=== PATIENT | male | born 1945 | race Caucasian/White ===

== ENCOUNTER 2020-04-24 05:34 | Inpatient (IN) | payer MEDICARE, OTHER ==
[2020-04-24] MEDS ORDERED: methylPREDNISolone Sod Succ/PF 125 MG/2 ML VIAL ONE (06:45)
[2020-04-24] MEDS ORDERED: Albuterol 200 PUFF (6.7GM INHALER) ONE (06:54)
[2020-04-24] MEDS ORDERED: HumaLOG 300 UNITS/3 ML VIAL SC PRN (07:07)
[2020-04-24] MEDS ORDERED: Dextrose 5% in Water 1,000 ML IV PRN (07:07)
[2020-04-24] MEDS ORDERED: Dextrose 50% Abboject 50 ML SYRINGE SLOW IVP PRN (07:07)
[2020-04-24 07:14] LABS: SARS-CoV-2 NAA Rapid Test Not Detected (NotDetected)
--- NOTE | 2020-04-24 07:36 | HP ---
REASON FOR ADMISSION: Shortness of breath. HISTORY OF PRESENT ILLNESS: This is a 75-year-old male patient, who is presenting with shortness of breath. History is going back to 24 hours before his presentation. He has been having worsening shortness of breath with cough productive of whitish sputum. He denies fevers. He denies chills. He does report low appetite ane a bit of diarrhea. He does report being tired at an outside ER. He did receive albuterol via inhaler and felt better. Upon his arrival to our emergency room, he was doing well until when I saw him, he appeared to be laboring to breathe, but able to finish a full sentence. The patient denies sick contacts. Denies recent travel, I did review his records, his last admission to our hospital was in 2017 for acute coronary syndrome. At that time, he was seen by Cardiology and Cardiovascular Surgery and did undergo valve replacement and bypass surgery. PAST MEDICAL HISTORY: 1. Severe aortic stenosis status post aortic valve replacement. 2. Coronary artery disease, status post CABG. 3. Ischemic cardiomyopathy. 4. Atrial fibrillation. 5. Type 2 diabetes. 6. High blood pressure. 7. Suspected uprw-ko-busdhmhz COPD. 8. 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 9. History of lymphoma post radiation and chemotherapy. He says that he has one rib removed on the right side. ALLERGIES: TO SULFA. SOCIAL HISTORY: He used to be a smoker. It seems that he quit approximately three years ago. Does not drink alcohol. FAMILY HISTORY: Positive for COPD and heart disease in his brother. REVIEW OF SYSTEMS: All systems reviewed except the above mentioned, found to be negative. PHYSICAL EXAMINATION: GENERAL: Awake, alert, and oriented. Does appear short of breath. VITAL SIGNS: His blood pressure is 100/74, heart rate of 84, respiratory rate 23, and saturating 97% room air. HEENT: Head is nontraumatic and normocephalic. Pupils are equal and reactive. Extraocular movements are intact. Nonicteric sclerae. Well injected conjunctivae. Oral mucosa normal. Nasal mucosa normal. NECK: Supple. No adenopathy. No murmur. Thyroid is not palpable. Trachea is midline. No supraclavicular lymphadenopathy. HEART: S1 and S2. Regular. No murmur. No gallops. No friction rubs. No displacement of PMI. LUNGS: Decreased air entry bilaterally. Whenever he coughs, I do hear bilateral expiratory rhonchi. ABDOMEN: Bowel sounds are positive. Nontender abdomen. No hepatosplenomegaly. No lower extremity edema. No cyanosis. NEURO: Cranial nerves 2 through 12 within normal limits. Normal motor function. Normal sensory function. Normal reflexes LABORATORY DATA: Blood work shows WBC of 12.1, hemoglobin of 10, which is around his baseline, platelets of 234, and neutrophil count 82%. Sodium of 139, potassium 3.5, bicarb of 17, BUN 15, creatinine 1, and lactic acid 3.3 and repeat is 1.9. BNP is 100.1. CT of the chest and thorax showing possibly right middle lobe pneumonia. Chest x-ray shows no active disease. ASSESSMENT AND PLAN: This is a 75-year-old male patient, who is presenting with shortness of breath, could be secondary to pneumonia/chronic obstructive pulmonary disease exacerbation, was still awaiting for the official report of his CT of the chest. Pulmonary: The patient will be on neb treatments. We are awaiting for his COVID-19 test result and we will start neb treatments afterward. We will have him on IV Solu-Medrol. We are debating whether he needs to go to med/surgery versus a higher level of care depending on his response to the inhalers that we are now giving to him. Diabetes: The patient will be on insulin sliding scale. Awaiting his med rec to be done. For deep venous thrombosis prophylaxis, he will be on Lovenox. Cardiac: The patient is on Plavix. This will be continued awaiting for his med rec to be done. I did discuss with him his code status. He wishes to be a full code. Job ID: [id number]
[2020-04-24] MEDS ORDERED: Azithromycin 500 MG in Sodium Chloride 0.9% 250 ML 250 ML IVPB SCH (08:00)
--- NOTE | 2020-04-24 08:27 | CT ---
CTA OF THE CHEST WITH CONTRAST: HISTORY: Shortness of breath and malaise for a day. Fever. TECHNIQUE: Multiple contiguous axial images were obtained in a CTA of the chest with contrast performed accordi ng to protocol. Three-D oblique MIP reformats and direct coronal reformats were performed. FINDINGS: The pulmonary arteries are well opacified without filling defects to suggest pulmonary emboli. The h eart is normal in size. The patient is status post aortic valve repair. No hilar or mediastinal lym phadenopathy are seen. Bony changes, shrapnel, and soft tissue attenuation is seen in the right lower lobe. This may repres ent scarring from a previous injury within the right lower lobe of the lung. There is also slight no dularity in the posterior aspect of the right middle lobe and there are increased interstitial lung m arkings and a slightly reticulonodular pattern in the right upper lobe. These findings may be sequel ae from prior injury or surgery, but infection cannot be entirely excluded. There is a nodule in the left lower lobe measuring 4 mm in size. No pneumothorax or pleural effusion are seen. There are gallstones in the gallbladder. The other visualized subdiaphragmatic structures are unrema rkable. There are absent right posterior ribs. Degenerative changes are seen in the spine. IMPRESSION: 1. No evidence of pulmonary thromboembolism. 2. Scattered areas of soft tissue attenuation in the right lung, greatest in the right lower lobe. This may be sequelae from prior surgery or trauma. An infection cannot be excluded and is also a pos sibility. 3. Cholelithiasis. POS: EAA
[2020-04-24 09:07] VITALS: BMI 26.4
--- NOTE | 2020-04-24 09:42 | PDOC.HOSPP ---
- Subjective Encounter Date: 04/24/20 Encounter Time: 09:38 Subjective: chronic cough. no fever, chills - Objective Vital Signs & Weight: Vital Signs (12 hours) Temp Pulse Resp BP Pulse Ox 04/24/20 08:45 99.0 F 68 18 136/71 96 Weight Weight 189 lb 4 oz Radiology Reviewed by me: Yes (cxr- no focal findings, post CABG) EKG Reviewed by me: Yes (RSR with PACs, st-t abn consistent with iscemia) - Exam General Appearance: awake alert Neck: no JVD Heart: RRR, II/IV Respiratory - other findings: good BS, no focal findings Gastrointestinal: soft, non-tender, normal bowel sounds Extremities: no edema Hosp A/P (1) Leukocytosis Code(s): D72.829 - ELEVATED WHITE BLOOD CELL COUNT, UNSPECIFIED Status: Acute (2) CAD (coronary artery disease) Code(s): I25.10 - ATHSCL HEART DISEASE OF [place] CORONARY ARTERY W/O ANG PCTRS Status: Acute Qualifiers: Coronary Disease-Associated Artery/Lesion type: [place] artery [place] vs. transplanted heart: [place] heart (3) Cardiomyopathy Code(s): I42.9 - CARDIOMYOPATHY, UNSPECIFIED Status: Acute Qualifiers: Cardiomyopathy type: unspecified Qualified Code(s): I42.9 - Cardiomyopathy , unspecified (4) S/P AVR Code(s): Z95.2 - PRESENCE OF PROSTHETIC HEART VALVE Status: Acute (5) S/P CABG (coronary artery bypass graft) Code(s): Z95.1 - PRESENCE OF AORTOCORONARY BYPASS GRAFT Status: Acute (6) HTN (hypertension) Code(s): I10 - ESSENTIAL (PRIMARY) HYPERTENSION Status: Chronic Qualifiers: Hypertension type: essential hypertension Qualified Code(s): I10 - Essential (primary) hypertension - Plan admitted with DX sepsis due to leukocytosis and elevated lactic acid lactic acid now normal, will rpt CBC cultures drawn in outlying ED cont antibx, await culture reports
[2020-04-24] MEDS: cefTRIAXone\\ROCEPHIN 1 GM in Sodium Chloride 0.9% 100 ML IVPB SCH (10:16)
[2020-04-24] MEDS: Enoxaparin Sodium 40 MG/0.4 ML SYRINGE SC SCH (10:16)
[2020-04-24] MEDS: Azithromycin 500 MG in Sodium Chloride 0.9% 250 ML 250 ML IVPB SCH (10:41)
[2020-04-24 10:49] LABS: #Lymphocytes 0.6 thou/uL (1.20-3.40); #Monocytes 0.3 thou/uL (0.11-0.59); #Neutrophils 10.4 thou/uL (1.40-6.50); %Eosinophils 0.4 % (0.0-10.0); %Lymphocytes 5.1 % (21.0-51.0); %Monocytes 2.6 % (0.0-10.0); %Neutrophils 91.9 % (42.0-75.0); Hemoglobin 10.2 g/dL (14.0-18.0); Mean Corpuscular HGB CONC 32.3 g/dL (32.0-36.0); Mean Corpuscular Hemoglobin 26.1 pg (27.0-31.0); Mean Platelet Volume 7.9 fL (7.4-10.4); Platelet Count 177 thou/uL (130-400); Red Blood Cell (RBC) Count 3.88 mill/uL (4.70-6.10); White Blood Cell (WBC) Count 11.3 thou/uL (4.8-10.8)
[2020-04-24] MEDS: Furosemide 20 MG TAB PO SCH (13:55)
[2020-04-24] MEDS: methylPREDNISolone Sod Succ 40 MG VIAL IVP SCH ×2 (14:49→23:01)
[2020-04-24] MEDS: Carvedilol 3.125 MG TAB PO SCH (16:37)
[2020-04-24] MEDS: metFORMIN 500 MG TAB PO SCH (16:37)
[2020-04-24] MEDS: Atorvastatin Calcium 20 MG TAB PO SCH (21:34)
[2020-04-24] MEDS: Gabapentin 100 MG CAP PO SCH (21:34)
[2020-04-24] MEDS: Lisinopril 5 MG TAB PO SCH (22:20)
[2020-04-25 05:34] LABS: #Lymphocytes 0.7 thou/uL (1.20-3.40); #Monocytes 0.3 thou/uL (0.11-0.59); #Neutrophils 7.8 thou/uL (1.40-6.50); %Basophils 0.1 % (0.0-1.0); %Eosinophils 0.1 % (0.0-10.0); %Lymphocytes 8.2 % (21.0-51.0); %Monocytes 3.3 % (0.0-10.0); %Neutrophils 88.4 % (42.0-75.0); Hemoglobin 8.7 g/dL (14.0-18.0); Mean Corpuscular HGB CONC 31.3 g/dL (32.0-36.0); Mean Corpuscular Hemoglobin 25.4 pg (27.0-31.0); Mean Corpuscular Volume 81.1 fL (78.0-98.0); Mean Platelet Volume 7.9 fL (7.4-10.4); Platelet Count 162 thou/uL (130-400); RBC Distribution Width 13.9 % (11.5-14.5); Red Blood Cell (RBC) Count 3.42 mill/uL (4.70-6.10); White Blood Cell (WBC) Count 8.8 thou/uL (4.8-10.8)
[2020-04-25 05:55] LABS: Anion Gap 14 mmol/L (10-20); BUN (Urea Nitrogen) 12 mg/dL (8.4-25.7); Calc. Creatinine Clearance 96 mL/min (70-130); Calcium 8.7 mg/dL (7.8-10.44); Carbon Dioxide 23 mmol/L (23-31); Chloride 108 mmol/L (98-107); Estimated GFR-MDRD Greater than 90; Glucose 161 mg/dL (83-110); Potassium 3.7 mmol/L (3.5-5.1); Sodium 141 mmol/L (136-145)
[2020-04-25] MEDS: cefTRIAXone\\ROCEPHIN 1 GM in Sodium Chloride 0.9% 100 ML IVPB SCH (08:28)
[2020-04-25] MEDS: metFORMIN 500 MG TAB PO SCH ×2 (08:29→16:24)
[2020-04-25] MEDS: Aspirin 325 mg Enteric Coated Tablet PO SCH (08:29)
[2020-04-25] MEDS: Gabapentin 100 MG CAP PO SCH ×2 (08:29→21:40)
[2020-04-25] MEDS: Furosemide 20 MG TAB PO SCH ×2 (08:29→14:50)
[2020-04-25] MEDS: Lisinopril 5 MG TAB PO SCH ×2 (08:30→21:40)
[2020-04-25] MEDS: methylPREDNISolone Sod Succ 40 MG VIAL IVP SCH ×3 (08:32→23:08)
[2020-04-25] MEDS: Enoxaparin Sodium 40 MG/0.4 ML SYRINGE SC SCH (08:33)
[2020-04-25] MEDS: Carvedilol 3.125 MG TAB PO SCH ×3 (08:33→16:27)
[2020-04-25] MEDS: Amiodarone 200 MG TAB PO SCH (08:37)
[2020-04-25] MEDS ORDERED: Pravastatin Sodium 40 MG TAB PO SCH (09:00)
[2020-04-25] MEDS: Azithromycin 500 MG in Sodium Chloride 0.9% 250 ML 250 ML IVPB SCH (11:45)
--- NOTE | 2020-04-25 14:30 | PDOC.HOSPP ---
- Subjective Encounter Date: 04/25/20 Encounter Time: 14:25 Subjective: f/u for suspected sepsis due to PNA/COPD tx with Zithromax/Rocephin/Solumedrol. Remains on RA currently. - Objective Vital Signs & Weight: Vital Signs (12 hours) Temp Pulse Resp BP Pulse Ox 04/25/20 13:33 65 16 96 04/25/20 08:20 96 04/25/20 07:59 98.0 F 569 H 18 155/62 H 96 04/25/20 07:38 49 L 16 96 04/25/20 04:12 97.8 F 54 L 18 181/71 H 96 Weight Weight 189 lb 4 oz I&O: 04/24/20 04/25/20 04/26/20 06:59 06:59 06:59 Intake Total 480 Balance 480 Result Diagrams: 04/25/20 05:20 04/25/20 05:20 Additional Labs: Accuchecks 04/25/20 04/25/20 04/24/20 11:26 06:16 20:26 POC Glucose 135 H 148 H 184 H 04/24/20 15:25 POC Glucose 188 H Microbiology 04/23/20 23:10 Urine voided Urine Culture - Preliminary NO GROWTH AT 24 HOURS 04/23/20 02:45 Venous blood - Left Arm Blood Culture - Preliminary Specimen has been received and culture in progress. No Growth to date. 04/23/20 00:45 Venous blood - Left Arm Blood Culture - Preliminary Specimen has been received and culture in progress. No Growth to date. Laboratory Tests 04/23/20 04/24/20 04/24/20 20:20 02:45 06:00 WBC Hgb Lactic Acid 3.3 H 1.9 2.1 SARS-CoV-2 Rap RNA(RT-PCR) 04/24/20 04/24/20 04/24/20 06:04 09:10 10:39 WBC 11.3 H Hgb 10.2 L Lactic Acid 2.0 SARS-CoV-2 Rap RNA(RT-PCR) Not Detected Hospitalist ROS - Medication Medications: Active Medications Generic Name Dose Route Start Last Admin Trade Name Freq PRN Reason Stop Dose Admin Albuterol/Ipratropium 3 ml 04/24/20 13:00 04/25/20 13:33 Duoneb NEB 3 ml [id number] INGRID Administration Amiodarone HCl 400 mg 04/25/20 09:00 04/25/20 08:37 Cordarone PO Not Given DAILY [facility] Aspirin 325 mg 04/25/20 09:00 04/25/20 08:29 Ecotrin PO 325 mg DAILY INGRID Administration Atorvastatin Calcium 20 mg 04/24/20 21:00 04/24/20 21:34 Lipitor PO 20 mg HS INGRID Administration Carvedilol 3.125 mg 04/24/20 17:00 04/25/20 08:33 Coreg PO Not Given BID-WM INGRID Enoxaparin Sodium 40 mg 04/24/20 09:00 04/25/20 08:33 Lovenox SC 40 mg 0900 INGRID Administration Furosemide 40 mg 04/24/20 14:00 04/25/20 08:29 Lasix PO 40 mg 0900,1400 INGRID Administration Gabapentin 100 mg 04/24/20 21:00 04/25/20 08:29 Neurontin PO 100 mg BID INGRID Administration Ceftriaxone Sodium 1 gm/ 100 mls @ 200 mls/hr 04/24/20 09:00 04/25/20 08:28 Sodium Chloride IVPB 100 mls 0900 INGRID Administration Azithromycin 500 mg/ Sodium 250 mls @ 250 mls/hr 04/24/20 11:00 04/25/20 11: 45 Chloride IVPB 250 mls 1100 INGRID Administration Lisinopril 5 mg 04/24/20 21:00 04/25/20 08:30 Zestril PO 5 mg BID INGRID Administration Metformin HCl 1,000 mg 04/24/20 17:00 04/25/20 08:29 Glucophage PO 1,000 mg BID-WM INGRID Administration Methylprednisolone Sodium Succinate 40 mg 04/24/20 15:00 04/25/20 08:32 Solu-Medrol IVP 40 mg 0700,1500,2300 INGRID Administration Pantoprazole Sodium 40 mg 04/25/20 09:00 04/25/20 08:32 Protonix PO 40 mg DAILY INGRID Administration Sertraline HCl 50 mg 04/25/20 09:00 04/25/20 08:28 Zoloft PO 50 mg DAILY INGRID Administration Sodium Chloride 10 ml 04/24/20 09:00 04/25/20 08:33 Flush - Normal Saline IVF 10 ml Q12HR INGRID Administration - Exam General Appearance: NAD, awake alert Eye: PERRL, anicteric sclera ENT: normocephalic atraumatic, no oropharyngeal lesions Neck: supple, symmetric, no JVD, no thyromegaly Heart: RRR, no gallops, no rubs, normal peripheral pulses, murmur present, II/IV Heart - other findings: S1, S2 Respiratory: CTAB, no wheezes, no rales, no ronchi, normal chest expansion, no tachypnea Gastrointestinal: soft, non-tender, non-distended, normal bowel sounds, no palpable masses Extremities: no cyanosis, no clubbing, no edema Skin: normal turgor, no lesions Neurological: cranial nerve grossly intact Musculoskeletal: normal tone, generalized weakness Psychiatric: normal affect, A&O x 3 Hosp A/P (1) Sepsis Code(s): A41.9 - SEPSIS, UNSPECIFIED ORGANISM Status: Acute Qualifiers: Sepsis acute organ dysfunction status: unspecified Plan: No dominant organism identified, d/c Zithromax, continue Rocephin another 24h (2) Leukocytosis Code(s): D72.829 - ELEVATED WHITE BLOOD CELL COUNT, UNSPECIFIED Status: Acute Plan: Resolved, serial monitoring (3) Aortic stenosis Code(s): I35.0 - NONRHEUMATIC AORTIC (VALVE) STENOSIS Status: Chronic Plan: s/p AVR, continue supportive mgmt (4) CAD (coronary artery disease) Code(s): I25.10 - ATHSCL HEART DISEASE OF [place] CORONARY ARTERY W/O ANG PCTRS Status: Chronic Qualifiers: Coronary Disease-Associated Artery/Lesion type: [place] artery [place] vs. transplanted heart: [place] heart Plan: Chronic, stable, continue med mgmt (5) DM2 (diabetes mellitus, type 2) Status: Chronic Qualifiers: Diabetes mellitus complication status: without complication Plan: ISS/Metformin/ADA - Plan continue antibiotics, social media specialist, out of bed/ambulate, DVT proph w/SCDs Stable currently Continue Rocephin D/C Zithromax OOB/ambulate Loperamide PRN Floranex 250mg po daily Likely home in am
[2020-04-25] MEDS ORDERED: Loperamide HCl 2 MG CAP PO PRN (14:50)
[2020-04-25] MEDS ORDERED: Loperamide HCl 2 MG CAP PO SCH (15:00)
[2020-04-25] MEDS ORDERED: Saccharomyces boulardii 250 MG CAP PO SCH (15:00)
[2020-04-25] MEDS: Atorvastatin Calcium 20 MG TAB PO SCH (21:40)
[2020-04-26 07:19] VITALS: BP 173/61; TEMP 98.7
[2020-04-26] MEDS: cefTRIAXone\\ROCEPHIN 1 GM in Sodium Chloride 0.9% 100 ML IVPB SCH (08:14)
[2020-04-26] MEDS: metFORMIN 500 MG TAB PO SCH (08:16)
[2020-04-26] MEDS: Lisinopril 5 MG TAB PO SCH (08:16)
[2020-04-26] MEDS: Carvedilol 3.125 MG TAB PO SCH (08:17)
[2020-04-26] MEDS: Furosemide 20 MG TAB PO SCH (08:17)
[2020-04-26] MEDS: Gabapentin 100 MG CAP PO SCH (08:17)
[2020-04-26] MEDS: Amiodarone 200 MG TAB PO SCH (08:18)
[2020-04-26] MEDS: Aspirin 325 mg Enteric Coated Tablet PO SCH (08:19)
[2020-04-26] MEDS: Enoxaparin Sodium 40 MG/0.4 ML SYRINGE SC SCH (08:21)
[2020-04-26] MEDS ORDERED: Saccharomyces boulardii 250 MG CAP PO SCH (09:00)
[2020-04-26] MEDS: methylPREDNISolone Sod Succ 40 MG VIAL IVP SCH (09:57)
--- NOTE | 2020-04-26 10:30 | DIS ---
DATE OF ADMISSION: 04/24/2020 DATE OF DISCHARGE: 04/26/2020 DISCHARGE DIAGNOSES: 1. Sepsis secondarily to suspected pneumonia, improved. 2. Bacterial pneumonia, suspected of the right middle lobe. 3. Leukocytosis, resolved. 4. Aortic stenosis, stable. 5. Coronary artery disease, chronic and stable. 6. Diabetes mellitus, type 2. CONSULTATIONS: None. PERTINENT LABORATORY AND X-RAY FINDINGS: Lactic acid level ranged between 1.9 to 3.3. CBC showed a white blood cell count ranging between 8.8 to 11.3. SARS COVID 2 RNA PCR not detected 04/24/2020. CT angiogram of the chest dated 04/24/2020, showed no evidence for pulmonary embolus. Soft tissue attenuation in the right lung and right lower lobe. Portable chest x-ray dated 04/23/2020 showed no acute process. HOSPITAL COURSE: The patient was admitted to the medical floor after initially presenting with shortness of breath with fever and myalgias. The patient underwent evaluation including chest imaging with plain radiographs and CT modality showing early infiltrate in the right middle and lower lobe. The patient was also meeting sepsis criteria and placed on broad-spectrum antibiotic coverage. The patient also was ruled out for COVID-19 with PCR as stated previously. The patient continued to receive Rocephin and azithromycin in addition to bronchodilator therapy with DuoNebs and IV Solu-Medrol. The patient rapidly clinically improved and was not requiring supplemental oxygen. The patient remained afebrile throughout the hospital course and clinically stabilized in 24 hours. I have examined the patient at the time of discharge and discussed followup instructions. The patient verbalized understanding and agreement, ready for discharge on 04/26/2020. DISCHARGE MEDICATIONS: 1. Nexium 40 mg p.o. daily. 2. Gabapentin 100 mg p.o. b.i.d. 3. Metformin 1000 mg p.o. b.i.d. 4. Pravachol 40 mg p.o. daily. 5. Sertraline 50 mg p.o. daily. 6. Proventil HFA 2 puffs inhaled q.i.d. p.r.n. 7. Amiodarone 400 mg p.o. daily. 8. Enteric-coated aspirin 325 mg p.o. daily. 9. Lipitor 20 mg p.o. at bedtime. 10. Coreg 3.125 mg p.o. b.i.d. 11. Omnicef 300 mg p.o. b.i.d. x7 days. 12. Lasix 40 mg p.o. b.i.d. 13. DuoNeb 3 mL nebulized q.6 hours p.r.n. 14. Lisinopril 5 mg p.o. b.i.d. 15. Prednisone 10 mg take 2 tablets p.o. b.i.d. x3 days, followed by 3 tablets p.o. daily x3 days, followed by 2 tablets p.o. daily x3 days. 16. Florastor 250 mg p.o. daily. FOLLOWUP: The patient may follow up with his primary care provider, Dr. Darian Marie within 7 days of discharge. CONDITION ON DISCHARGE: Stable. ACTIVITY: Ad-rodolfo. DIET: ADA and heart healthy. CODE STATUS: Full. DISPOSITION: To home, 04/26/2020. TIME SPENT: Total time preparing and coordinating discharge is 33 minutes. Job ID: [id number]
== END 2020-04-26 10:56 | disposition home or self-care (01) | DRG 871 ==
LOC: ERS 05:34 → T4-B 08:53
PROVIDERS: ADMIT Internal Medicine; ATTEND Internal Medicine
DX: A41.9 Sepsis, unspecified organism (principal); J15.9 Unspecified bacterial pneumonia; J44.0 Chronic obstructive pulmonary disease with (acute) lower respiratory infection; J44.1 Chronic obstructive pulmonary disease with (acute) exacerbation; I69.954 Hemiplegia and hemiparesis following unspecified cerebrovascular disease affecting left non-dominant side; C79.51 Secondary malignant neoplasm of bone; E87.2 Acidosis; Z20.828 Contact with and (suspected) exposure to other viral communicable diseases; R65.20 Severe sepsis without septic shock; I25.10 Atherosclerotic heart disease of native coronary artery without angina pectoris; I35.0 Nonrheumatic aortic (valve) stenosis; E11.9 Type 2 diabetes mellitus without complications; I25.5 Ischemic cardiomyopathy; I48.91 Unspecified atrial fibrillation; I10 Essential (primary) hypertension; Z95.2 Presence of prosthetic heart valve; Z95.1 Presence of aortocoronary bypass graft; Z87.891 Personal history of nicotine dependence; Z88.2 Allergy status to sulfonamides; Z79.84 Long term (current) use of oral hypoglycemic drugs; Z79.899 Other long term (current) drug therapy
CPT/HCPCS: 36415; 36416; 71275; 80048; 83605; 85025; 94640; 94664; 96374; J0456; J0696; J1650; J2920; J2930; J3490; J7050; J7620; U0002

== ENCOUNTER 2025-07-01 00:32 | Inpatient (IN) | payer MEDICARE ==
[2025-07-01] MEDS ORDERED: Acetaminophen 325 MG TAB PO PRN (02:09)
[2025-07-01] MEDS ORDERED: Ondansetron PF 4 MG/2 ML Vial IVP PRN (02:09)
[2025-07-01] MEDS ORDERED: Calcium Carbonate 500 MG ChewTAB PO PRN (02:09)
[2025-07-01 02:10] VITALS: BMI 29.3
[2025-07-01] MEDS ORDERED: Electrolyte Replacement Protocol 1 EACH FS SCH (02:15)
[2025-07-01 04:47] LABS: #Basophils Less than 0.03 10x3/uL (0.0-0.2); #Eosinophils 0.26 10x3/uL (0.0-0.7); #Monocytes 0.37 10x3/uL (0.11-0.59); #Neutrophils 4.88 10x3/uL (1.40-6.50); %Basophils 0.3 % (0.0-1.0); %Eosinophils 3.9 % (0.0-10.0); %Lymphocytes 17.3 % (21.0-51.0); %Monocytes 5.5 % (0.0-10.0); %Neutrophils 72.7 % (42.0-75.0); Hematocrit 33.2 % (42.0-52.0); Hemoglobin 9.6 g/dL (14.0-18.0); Mean Corpuscular Hemoglobin 22.8 pg (27.0-31.0); Mean Corpuscular Volume 78.9 fL (78.0-98.0); Platelet Count 185 10x3/uL (130-400); Red Blood Cell (RBC) Count 4.21 mill/uL (4.70-6.10); White Blood Cell (WBC) Count 6.71 10x3/uL (4.8-10.8)
[2025-07-01 05:05] LABS: ALT (SGPT) Less than 7 U/L (Less than 45); AST (SGOT) 14 U/L (11-34); Albumin 3.4 g/dL (3.1-4.5); Alkaline Phosphatase 104 U/L (40-110); Anion Gap 11 mmol/L (10-20); BUN (Urea Nitrogen) 22 mg/dL (8.4-25.7); Bilirubin, Total 0.4 mg/dL (0.3-1.2); Calc. Creatinine Clearance 48 mL/min (70-130); Calcium 8.9 mg/dL (7.8-10.44); Carbon Dioxide 25 mmol/L (23-31); Chloride 106 mmol/L (98-107); Globulin 3.3 g/dL (2.4-3.5); Glucose 135 mg/dL (83-110); Potassium 4.1 mmol/L (3.5-5.1); Sodium 138 mmol/L (136-145)
[2025-07-01 05:16] LABS: INR-International Normal Ratio 1.2; PTT 50.5 sec (22.9-36.1); Prothrombin Time 15.2 sec (12.0-14.7)
[2025-07-01 05:17] LABS: D-Dimer Test 1.81 mcg/mL (0.27-0.43)
[2025-07-01] MEDS: Sertraline 25 MG TAB PO SCH (08:25)
[2025-07-01] MEDS: Enoxaparin 100 MG (1 mL) SYRINGE SC SCH (08:25)
[2025-07-01] MEDS: Aspirin 81 mg Enteric Coated Tablet PO SCH (08:25)
[2025-07-01] MEDS: Ipratropium Bromide 2.5 ml Neb NEB SCH (08:31)
[2025-07-01] MEDS ORDERED: Dextrose 50% Abboject 50 ML SYRINGE SLOW IVP PRN (10:26)
[2025-07-01] MEDS ORDERED: Glucagon 1 MG/ML KIT IM PRN (10:26)
[2025-07-01] MEDS ORDERED: Potassium Chloride 20 MEQ in Premix 1 BAG IVPB PRN (12:00)
[2025-07-01] MEDS ORDERED: Magnesium 2 GM/50 ML(in water) 2 GM in Premix 1 BAG IVPB PRN (12:00)
[2025-07-01] MEDS ORDERED: PHOS-NAK 1 PKT PACK PO PRN (12:00)
[2025-07-01] MEDS: Carvedilol 6.25 MG TAB PO SCH (21:44)
[2025-07-02 05:15] LABS: Albumin 3.3 g/dL (3.1-4.5); Anion Gap 15 mmol/L (10-20); BUN (Urea Nitrogen) 22 mg/dL (8.4-25.7); BUN/Creatinine Ratio 14.86; Calc. Creatinine Clearance 49 mL/min (70-130); Calcium 8.9 mg/dL (7.8-10.44); Carbon Dioxide 22 mmol/L (23-31); Chloride 108 mmol/L (98-107); Glucose 119 mg/dL (83-110); Potassium 4.1 mmol/L (3.5-5.1); Sodium 141 mmol/L (136-145)
[2025-07-02 05:53] LABS: #Basophils 0.03 10x3/uL (0.0-0.2); #Eosinophils 0.32 10x3/uL (0.0-0.7); #Monocytes 0.50 10x3/uL (0.11-0.59); #Neutrophils 4.12 10x3/uL (1.40-6.50); %Basophils 0.5 % (0.0-1.0); %Eosinophils 5.2 % (0.0-10.0); %Lymphocytes 18.5 % (21.0-51.0); %Monocytes 8.2 % (0.0-10.0); %Neutrophils 67.4 % (42.0-75.0); Hematocrit 33.3 % (42.0-52.0); Hemoglobin 9.6 g/dL (14.0-18.0); Mean Corpuscular Hemoglobin 22.6 pg (27.0-31.0); Mean Corpuscular Volume 78.4 fL (78.0-98.0); Platelet Count 191 10x3/uL (130-400); Red Blood Cell (RBC) Count 4.25 mill/uL (4.70-6.10); White Blood Cell (WBC) Count 6.11 10x3/uL (4.8-10.8)
[2025-07-02] MEDS: Spironolactone 25 MG TAB PO SCH (08:20)
[2025-07-02] MEDS: Furosemide 40 MG TAB PO SCH (08:21)
[2025-07-02 11:52] LABS: EliA APS New Method **** NEW METHOD ****
[2025-07-02] MEDS: Pantoprazole 40 MG DR.TAB PO SCH (21:12)
[2025-07-03 04:26] LABS: #Basophils Less than 0.03 10x3/uL (0.0-0.2); #Eosinophils 0.29 10x3/uL (0.0-0.7); #Monocytes 0.43 10x3/uL (0.11-0.59); #Neutrophils 3.95 10x3/uL (1.40-6.50); %Basophils 0.3 % (0.0-1.0); %Eosinophils 4.9 % (0.0-10.0); %Lymphocytes 20.9 % (21.0-51.0); %Monocytes 7.2 % (0.0-10.0); %Neutrophils 66.5 % (42.0-75.0); Hematocrit 32.2 % (42.0-52.0); Hemoglobin 9.4 g/dL (14.0-18.0); Mean Corpuscular Hemoglobin 23.0 pg (27.0-31.0); Mean Corpuscular Volume 78.7 fL (78.0-98.0); Platelet Count 186 10x3/uL (130-400); Red Blood Cell (RBC) Count 4.09 mill/uL (4.70-6.10); White Blood Cell (WBC) Count 5.94 10x3/uL (4.8-10.8)
[2025-07-03 04:39] LABS: Albumin 3.4 g/dL (3.1-4.5); Anion Gap 17 mmol/L (10-20); BUN (Urea Nitrogen) 25 mg/dL (8.4-25.7); BUN/Creatinine Ratio 13.97; Calc. Creatinine Clearance 41 mL/min (70-130); Calcium 9.0 mg/dL (7.8-10.44); Carbon Dioxide 23 mmol/L (23-31); Chloride 105 mmol/L (98-107); Glucose 129 mg/dL (83-110); Potassium 3.7 mmol/L (3.5-5.1); Sodium 141 mmol/L (136-145)
[2025-07-03] MEDS: Folic Acid/Vit B Comp W-C PO SCH (08:49)
[2025-07-03] MEDS: Senokot S 8.6-50 MG TAB PO PRN (08:59)
[2025-07-03 11:36] VITALS: BP 151/73; TEMP 97.3
== END 2025-07-03 14:42 | disposition home or self-care (01) | DRG 175 ==
LOC: 2NO 01:47 → OBSVTOIN 07-02 10:28
PROVIDERS: ADMIT Student in an Organized Health Care Education/Training Program; ATTEND Internal Medicine
DX: I26.93 Single subsegmental thrombotic pulmonary embolism without acute cor pulmonale (principal); J96.01 Acute respiratory failure with hypoxia; I50.22 Chronic systolic (congestive) heart failure; N17.9 Acute kidney failure, unspecified; C85.9A Non-Hodgkin lymphoma, unspecified, in remission; I25.10 Atherosclerotic heart disease of native coronary artery without angina pectoris; Z95.1 Presence of aortocoronary bypass graft; J44.9 Chronic obstructive pulmonary disease, unspecified; E78.5 Hyperlipidemia, unspecified; E11.9 Type 2 diabetes mellitus without complications; Z95.2 Presence of prosthetic heart valve; Z88.2 Allergy status to sulfonamides; I11.0 Hypertensive heart disease with heart failure; D64.9 Anemia, unspecified; Z79.82 Long term (current) use of aspirin; Z79.899 Other long term (current) drug therapy
CPT/HCPCS: 36415; 36416; 71045; 80053; 80069; 81240; 81241; 83090; 83880; 85025; 85300; 85303; 85306; 85307; 85379; 85598; 85610; 85730; 86147; 93306; 93970; 94640; 94760; 96372; G0378; J1650; J1815; J7626; J7644